=== PATIENT | female | born 1990 | race Caucasian/White ===

== ENCOUNTER 2017-05-18 11:22 | Emergency (ER) | payer OTHER ==
[2017-05-18 11:27] VITALS: BMI 29.2
[2017-05-18] MEDS ORDERED: ONDANSETRON 4 MG/2 ML VIAL IVPUSH ONE (12:09)
--- NOTE | 2017-05-18 12:18 | PDOC ---
History of Present Illness - General History Source: Patient Exam Limitations: No Limitations - History of Present Illness Initial Comments: 05/18/17 12:16 27 y.o. 13 week F with no pmh presenting with abdominal pain, nausea, and vomiting x 3 days. Patient states she was sleeping when she began having abdominal pain. She states the pain is constant, 6/10, sharp, epigastric to suprapubic, and non radiating. Patient has never had this before. She still has her gallbladder and appendix. Patient endorses nausea, vomiting, diarrhea. Patient denies, fever, chills, dysuria, hematuria, back pain, vaginal bleeding, hx of stds. PSH: none Allergies: nkda Social hx: denies alcohol, drugs, smoking PCP: Dr. Leonor Duffy <Clifton Alvares - Last Filed: 05/18/17 15:08> <Daniel Ku - Last Filed: 05/18/17 15:54> - General Chief Complaint: Pain Stated Complaint: ABDOMINAL PAIN/13 WEEKS/nausea/vomiting Time Seen by Provider: 05/18/17 11:40 Past History - Past Medical History Other medical history: denies - Suicide/Smoking/Psychosocial Hx Smoking History: Never smoked Hx Alcohol Use: No Drug/Substance Use Hx: No Substance Use Type: None <Clifton Alvares - Last Filed: 05/18/17 15:08> <Daniel Ku - Last Filed: 05/18/17 15:54> - Past Medical History Allergies/Adverse Reactions: Allergies Allergy/AdvReac Type Severity Reaction Status Date / Time No Known Allergies Allergy Verified 05/18/17 11:27 Home Medications: Ambulatory Orders Ondansetron [Zofran Odt -] 4 mg SL BID PRN #8 tab.rapdis 05/18/17 Vit/Iron Fumarate/FA [ Tablet] 1 each PO DAILY 05/18/17 Review of Systems - Review of Systems Comments:: 05/18/17 12:26 GENERAL/CONSTITUTIONAL: No fever or chills. No weakness. HEAD, EYES, EARS, NOSE AND THROAT: No change in vision. No ear pain or discharge. No sore throat. CARDIOVASCULAR: No chest pain or shortness of breath RESPIRATORY: No cough, wheezing, or hemoptysis. GASTROINTESTINAL: + nausea, +vomiting, +diarrhea, +abdominal pain (epigastric to suprapubic) GENITOURINARY: No dysuria, frequency, or change in urination. MUSCULOSKELETAL: No joint or muscle swelling or pain. No neck or back pain. SKIN: No rash NEUROLOGIC: No headache, vertigo, loss of consciousness, or change in strength/ sensation. ENDOCRINE: No increased thirst. No abnormal weight change HEMATOLOGIC/LYMPHATIC: No anemia, easy bleeding, or history of blood clots. ALLERGIC/IMMUNOLOGIC: No hives or skin allergy. <Clifton Alvares - Last Filed: 05/18/17 15:08> *Physical Exam - Vital Signs Last Vital Signs Temp Pulse Resp BP Pulse Ox 98.3 F 83 18 133/70 98 05/18/17 11:25 05/18/17 11:25 05/18/17 11:25 05/18/17 11:25 05/18/17 11:25 - Physical Exam Comments: 05/18/17 12:27 GENERAL: Awake, alert, and fully oriented, in no acute distress HEAD: No signs of trauma, normocephalic, atraumatic EYES: PERRLA, EOMI, sclera anicteric, conjunctiva clear ENT: Auricles normal inspection, hearing grossly normal, nares patent, oropharynx clear without exudates. Moist mucosa NECK: Normal ROM, supple, no lymphadenopathy, JVD, or masses LUNGS: No distress, speaks full sentences, clear to auscultation bilaterally HEART: Regular rate and rhythm, normal S1 and S2, no murmurs, rubs or gallops, peripheral pulses normal and equal bilaterally. ABDOMEN: Soft, +Tenderness to palpation to epigastric and suprapubic regions, normoactive bowel sounds. No guarding, no rebound. No masses, No CVA tenderness. Negative perez's sign, Negative mcburney's point tenderness EXTREMITIES: Normal inspection, Normal range of motion, no edema. No clubbing or cyanosis. NEUROLOGICAL: Cranial nerves II through XII grossly intact. Normal speech, normal gait, no focal sensorimotor deficits SKIN: Warm, Dry, normal turgor, no rashes or lesions noted. <Clifton Alvares - Last Filed: 05/18/17 15:08> - Vital Signs Last Vital Signs Temp Pulse Resp BP Pulse Ox 98.7 F 81 17 109/67 96 05/18/17 15:06 05/18/17 15:06 05/18/17 15:06 05/18/17 15:06 05/18/17 15:06 <Daniel Ku - Last Filed: 05/18/17 15:54> ED Treatment Course - LABORATORY CBC & Chemistry Diagram: 05/18/17 12:38 05/18/17 12:38 <Clifton Alvares - Last Filed: 05/18/17 15:08> - LABORATORY CBC & Chemistry Diagram: 05/18/17 12:38 05/18/17 12:38 - ADDITIONAL ORDERS Additional order review: Laboratory Results 05/18/17 05/18/17 05/18/17 12:43 12:38 12:38 Sodium 135 L Potassium 3.6 Chloride 102 Carbon Dioxide 26 Anion Gap 7 L BUN 5 L Creatinine 0.5 L Creat Clearance w eGFR > 60 Random Glucose 88 Calcium 8.8 Total Bilirubin 0.4 AST 25 ALT 31 Alkaline Phosphatase 66 Total Protein 7.8 Albumin 3.8 Lipase 93 Beta HCG, Quant 31171.4 Urine Color [place] Urine Appearance Cloudy Urine pH 6.0 Ur Specific [place] 1.020 Urine Protein Negative Urine Glucose (UA) Negative Urine Ketones Trace H Urine Blood Negative Urine Nitrite Negative Urine Bilirubin Negative Urine Urobilinogen Negative 05/18/17 12:38 RBC 4.43 MCV 88.6 MCHC 34.0 RDW 13.6 MPV 8.1 Neutrophils % 82.1 Lymphocytes % 11.6 Monocytes % 5.4 Eosinophils % 0.6 Basophils % 0.3 - Medications Given in the ED: ED Medications Discontinued Medications Generic Name Dose Route Start Last Admin Trade Name Jesse PRN Reason Stop Dose Admin Acetaminophen 650 mg 05/18/17 12:24 05/18/17 12:50 Tylenol - PO 05/18/17 12:25 650 mg ONCE ONE Administration Ondansetron HCl 4 mg 05/18/17 12:09 05/18/17 12:50 Zofran Injection IVPUSH 05/18/17 12:10 4 mg ONCE ONE Administration <Daniel Ku - Last Filed: 05/18/17 15:54> Medical Decision Making - Medical Decision Making 05/18/17 12:29 27 y.o. 13 week F with no pmh presenting with abdominal pain, nausea, and vomiting x 3 days. DDx: Cholecystitis, Appendicits, UTI, Pancreatitis Plan: CBC, CMP, Lipase, Abdominal U/s, Zofran, Pain control, Beta HCG, UA, Urine culture 05/18/17 13:41 CBC, CMP, Lipase, UA unremarkable 05/18/17 13:47 Beta HCG- 18922 05/18/17 15:08 Abdominal and Obstetric U/s unremarkable. Patient to be discharged home with close f/u with Dr. Duffy <Clifton Alvares - Last Filed: 05/18/17 15:08> *DC/Admit/Observation/Transfer <Clifton Alvares - Last Filed: 05/18/17 15:08> - Discharge Dispostion Admit: No - Attestations Physician Attestion: 05/18/17 15:54 I, Dr. Daniel Ku MD, attest that this document has been prepared under my direction and personally reviewed by me in its entirety. I further attest, that it accurately reflects all work, treatment, procedures and medical decision -making performed by me. <Daniel Ku - Last Filed: 05/18/17 15:54> Diagnosis at time of Disposition: Abdominal pain - Discharge Dispostion Disposition: HOME Condition at time of disposition: Stable - Prescriptions Prescriptions: Ondansetron [Zofran Odt -] 4 mg SL BID PRN #8 tab.rapdis PRN Reason: Nausea - Patient Instructions Printed Discharge Instructions: DI for Viral Gastroenteritis -- Adult Additional Instructions: Follow up with Dr. Brown next 05/24/17 as scheduled. Follow up with your primary doctor within 3-4 days. Drink plenty of fluids. You may take tylenol as needed for pain, and zofran as needed for nausea. Return to the emergency department if you have any new, concerning, or worsening symptoms. Print Language: VIET[place]ESE
[2017-05-18] MEDS ORDERED: ACETAMINOPHEN 325 MG TABLET (FP) PO ONE (12:24)
--- NOTE | 2017-05-18 12:25 | PDOC ---
Attending Attestation - Resident Resident Name: GiorgioLoul - ED Attending Attestation I have performed the following: I have examined & evaluated the patient, The case was reviewed & discussed with the resident, I agree w/resident's findings & plan, Exceptions are as noted - HPI HPI: 05/18/17 12:19 27yo F 13 weeks p/w abd pain x 3 days. Pain is epigastric and suprapubic, 6/10, non radiating a/w nausea and NBNB emesis. Also diarrhea since today, reports stool is black but patient reports her stool has been dark since she started iron supplements. No dysuria or frequency. Denies vaginal bleeding or discharge. Denies fevers, chills, headache, weakness, numbness, CP or SOB. - Physicial Exam PE: 05/18/17 12:25 GENERAL: Awake, alert, and fully oriented, in no acute distress HEAD: No signs of trauma EYES: PERRLA, EOMI, sclera anicteric, conjunctiva clear ENT: Auricles normal inspection, hearing grossly normal, nares patent, oropharynx clear without exudates. Moist mucosa NECK: Normal ROM, supple, no lymphadenopathy, JVD, or masses LUNGS: Breath sounds equal, clear to auscultation bilaterally. No wheezes, and no crackles HEART: Regular rate and rhythm, normal S1 and S2, no murmurs, rubs or gallops ABDOMEN: Soft, ttp in epigastric and suprapubic area, normoactive bowel sounds. No guarding, no rebound. No masses, pt declines rectal exam. LEAD JAVA SOFTWARE ENGINEER: os closed, no bleeding or discharge, no midline or adnexal ttp EXTREMITIES: Normal range of motion, no edema. No clubbing or cyanosis. No cords, erythema, or tenderness NEUROLOGICAL: Normal speech, cranial nerves intact, negative pronator drift, 5/ 5 strength in all 4 extremities, normal sensation to light touch in all 4 extremities, normal cerebellar exam, normal gait, normal reflexes and tone SKIN: Warm, Dry, normal turgor, no rashes or lesions noted. - Medical Decision Making 05/18/17 12:26 27yo F 13 weeks p/w 3 days of epigastric and suprapubic abd pain a /w nausea and diarrhea. Exam with ttp to suprapubic area and epgastric area. No CVAT. Differential is wide and includes UTI vs gastritis vs spont vs pancreatitis -labs -UA -US -tylenol/zofran -reassess 05/18/17 15:10 Pt reports abdominal pain and nausea have completely resolved. Pt tolerating PO. Labs, UA, and US unremarkable. Likely gastroenteritis. Using an conference interpreter (phone, Sheri) I discussed the physical exam findings, ancillary test results and final diagnoses with the patient. I answered all of the patient's questions. The patient was satisfied with the care received and felt comfortable with the discharge plan and treatment plan. The patient has follow up with her OB Dr. Sailaja Brown next . The patient will call her primary care physician within 24 hours to arrange follow-up and will return to the Emergency Department with any new, persistent or worsening symptoms.
[2017-05-18] MEDS ORDERED: ACETAMINOPHEN 325 MG TABLET (FP) ONE (12:40)
[2017-05-18] MEDS ORDERED: ONDANSETRON 4 MG/2 ML VIAL ONE (12:41)
[2017-05-18 12:44] LABS: BASOPHIL 0.3 % (0-2.0); EOSINOPHIL 0.6 % (0-4.5); MCH 30.1 pg (25.7-33.7); MEAN CELL VOLUME 88.6 fl (80-96); MEAN PLT VOLUME 8.1 fl (7.5-11.1); NEUTROPHILS 82.1 % (42.8-82.8); PLATELET COUNT 251 K/MM3 (134-434); RDW 13.6 % (11.6-15.6); WHITE BLOOD COUNT 8.7 K/mm3 (4.0-10.0)
[2017-05-18 13:00] LABS: URINE APPEARANCE CLOUDY; URINE BILIRUBIN NEGATIVE (NEGATIVE); URINE BLOOD NEGATIVE (NEGATIVE); URINE COLOR AMBER; URINE GLUCOSE (UA) NEGATIVE (NEGATIVE); URINE KETONE TRACE (NEGATIVE); URINE LEUK ESTERASE NEGATIVE (NEGATIVE); URINE NITRITE NEGATIVE (NEGATIVE); URINE PROTEIN NEGATIVE (NEGATIVE); URINE UROBILINOGEN NEGATIVE mg/dL (0.2-1.0)
[2017-05-18 13:24] LABS: ALBUMIN 3.8 g/dl (3.4-5.0); ALK PHOS 66 U/L (45-117); ANION GAP 7 (8-16); BILIRUBIN,TOTAL 0.4 mg/dL (0.2-1.0); CALCIUM 8.8 mg/dL (8.5-10.1); CO2 26 mmol/L (21-32); CREATININE 0.5 mg/dL (0.55-1.02); GLUCOSE,RANDOM 88 mg/dL (74-106); SGOT/AST 25 U/L (15-37); SGPT/ALT 31 U/L (12-78); TOT PROT 7.8 g/dl (6.4-8.2)
[2017-05-18 15:07] VITALS: BP 109/67; PULSE 81; TEMP 98.7
== END 2017-05-18 15:54 | disposition home or self-care (01) ==
LOC: JER 11:22
PROC: 3E033GC Introduction of Other Therapeutic Substance into Peripheral Vein, Percutaneous Approach (ICD-10-PCS; principal; 2017-05-18)
DX: O26.891 Other specified pregnancy related conditions, first trimester (principal); O98.511 Other viral diseases complicating pregnancy, first trimester; A08.4 Viral intestinal infection, unspecified; Z3A.13 13 weeks gestation of pregnancy
CPT/HCPCS: 36415; 76700-TC; 76801-TC; 80053; 81003; 83690; 84702; 85025; 87086; 96374; 99283-25

== ENCOUNTER 2017-11-27 05:00 | Inpatient (IN) | payer OTHER ==
[~2017-11-27 05:00] MED LIST: LACTATED RINGERS SOLUTION 1,000 ML IV SCH
[2017-11-27] MEDS ORDERED: AMPICILLIN - 2 GM in SODIUM CHLORIDE 100 ML IVPB ONE (06:00)
[2017-11-27 06:27] LABS: BASO % 0.4 % (0-2.0); EOS % 0.9 % (0-4.5); HEMATOCRIT 38.9 % (32.4-45.2); HEMOGLOBIN 13.3 GM/dL (10.7-15.3); MCH 30.6 pg (25.7-33.7); MCHC 34.1 g/dl (32.0-36.0); MEAN CELL VOLUME 89.6 fl (80-96); MEAN PLT VOLUME 9.4 fl (7.5-11.1); MONO % 6.7 % (3.8-10.2); PLATELET COUNT 215 K/MM3 (134-434); RBC 4.34 M/mm3 (3.60-5.2); RDW 14.5 % (11.6-15.6); WHITE BLOOD COUNT 8.3 K/mm3 (4.0-10.0)
[2017-11-27 06:48] LABS: INR 0.89 (0.82-1.09); PROTHROMBIN TIME (PATIENT) 10.1 SEC (9.98-11.88)
[2017-11-27 07:03] LABS: ANION GAP 9 (8-16); BLOOD UREA NITROGEN 7 mg/dL (7-18); CALCIUM 8.8 mg/dL (8.5-10.1); CHLORIDE 108 mmol/L (98-107); CO2 22 mmol/L (21-32); CREATININE 0.5 mg/dL (0.55-1.02); GLUCOSE,RANDOM 80 mg/dL (74-106); POTASSIUM 3.9 mmol/L (3.5-5.1); SODIUM 139 mmol/L (136-145)
[2017-11-27] MEDS ORDERED: AMPICILLIN SODIUM 1 GM VIAL ONE (10:07)
[2017-11-27] MEDS: AMPICILLIN - 1 GM in SODIUM CHLORIDE 100 ML IVPB SCH ×3 (10:11→18:12)
[2017-11-27] MEDS ORDERED: ELECTROLYTE-148 SOLN 1,000 ML IV SCH ×2 (10:30→11:30)
[2017-11-27] MEDS ORDERED: CITRIC ACID/SODIUM CITRATE 30 ML UNIT-DOSE CUP PO ONE ×2 (10:30→10:36)
--- NOTE | 2017-11-27 10:42 | HP ---
Past Medical History - Primary Care Physician PCP:: Gaston Avila - Admission Chief Complaint: 41 weeks, oblique lie. labor History of Present Illness: 27 yo f , 41.1 weeks, c/o contraction and vaginal spotting, no rom, cx clp , presenting part not felt , bed side sono confirmed oblique lie , fhr cat 1 contraction q 3 min History Source: Patient Limitations to Obtaining History: Language Barrier - Past Medical History ...: 1 ...Para: 0 ...Term: 0 ...: 0 ...Spon : 0 ...Induced : 0 ...Multiple Gestation: 0 ...LMP: 02/12/17 ... Weeks Gestation by Dates: 41.1 ...EDC by Dates: 11/19/17 - Past Surgical History Hx Myomectomy: No Hx Transabdominal Cerclage: No - Smoking History Smoking history: Never smoked Have you smoked in the past 12 months: No - Alcohol/Substance Use Hx Alcohol Use: No - Social History Usual Living Arrangement: Yes: With Spouse History of Recent Travel: No Home Medications - Allergies Allergies/Adverse Reactions: Allergies Allergy/AdvReac Type Severity Reaction Status Date / Time No Known Allergies Allergy Verified 11/22/17 17:42 - Home Medications Home Medications: Ambulatory Orders Vit/Iron Fum/Folic AC [ Tablet] 1 each PO DAILY 05/18/17 Ferrous Sulfate [Feosol] 325 mg PO DAILY 11/19/17 Review of Systems - Review of Systems Constitutional: reports: No Symptoms Eyes: reports: No Symptoms HENT: reports: No Symptoms Neck: reports: No Symptoms Cardiovascular: reports: No Symptoms Respiratory: reports: No Symptoms Gastrointestinal: reports: No Symptoms Genitourinary: reports: No Symptoms, Vaginal Bleeding Breasts: reports: No Symptoms Reported Musculoskeletal: reports: No Symptoms Integumentary: reports: No Symptoms Neurological: reports: No Symptoms Endocrine: reports: No Symptoms Hematology/Lymphatic: reports: No Symptoms Psychiatric: reports: No Symptoms Physical Exam - Maternity Vital Signs: Vital Signs Temperature 98.8 F 11/27/17 10:00 Pulse Rate 78 11/27/17 10:00 Respiratory Rate 18 11/27/17 10:00 Blood Pressure 128/76 11/27/17 10:00 O2 Sat by Pulse Oximetry (%) Constitutional: Yes: Well Nourished, No Distress, Calm Eyes: Yes: WNL, Conjunctiva Clear, EOM Intact HENT: Yes: WNL, Atraumatic, Normocephalic Neck: Yes: WNL, Supple, Trachea Midline Cardiovascular: Yes: WNL, Regular Rate and Rhythm Breast(s): Yes: WNL - Abdominal Exam/OB Fundal Height: 40 Number of Fetuses: Single Presentation: Vertex Contractions: Yes Regularity: Regular Intensity: Moderate Monitor Mode: External Heart Rate Location: [facility] Category: I Accelerations: Uniform - Vaginal Exam/OB Vaginal Bleediing: No Speculum Exam: No Dilatation (cm): closed Effacement (%): 0 Amniotic Membrane Status: Intact Presentation: Transverse/Shoulder Station: -4 - Physical Exam Edema: LLE: 1+, RLE: 1+ - Labs Lab Results: CBC, BMP 11/27/17 06:00 11/27/17 06:00 Hemorrhage Risk Assessment - Risk Factors Medium Risk Factors: Yes: Prior , uterine surgery,or multiple laparotomies, None High Risk Factors: Yes: None Risk Score: 2 Risk Level: High Risk Problem List - Problems (1) with 41 completed weeks gestation Code(s): Z3A.41 - 41 WEEKS GESTATION OF (2) Oblique lie Code(s): O32.2XX0 - MATERNAL CARE FOR TRANSVERSE AND OBLIQUE LIE, UNSP Qualifiers: Fetus number: single or unspecified fetus Qualified Code(s): O32.2XX0 - Maternal care for transverse and oblique lie, not applicable or unspecified (3) Labor established Code(s): WGQ4688 - Assessment/Plan plan c/s rba discussed
[2017-11-27] MEDS ORDERED: morphine SULFATE/Preservative Free 0.5 MG/ML (1cc Syringe) ONE (11:38)
[2017-11-27] MEDS ORDERED: ePHEDrine SULFATE 50 MG/1 ML AMPULE ONE (11:38)
[2017-11-27] MEDS ORDERED: ceFAZolin SODIUM 1 GM VIAL ONE (11:57)
[2017-11-27] MEDS ORDERED: OXYTOCIN 10 UNITS/ML VIAL ONE (12:02)
[2017-11-27] MEDS ORDERED: BENZOCAINE 28 GM HEMORRHOIDAL OINTMENT PR PRN (12:34)
[2017-11-27] MEDS ORDERED: diphenhydrAMINE HCL 25 MG CAPSULE (FP) PO PRN (12:34)
[2017-11-27] MEDS ORDERED: IBUPROFEN 800 MG/8 ML IJ IVPB PRN (12:34)
[2017-11-27] MEDS ORDERED: BENZOCAINE 20% 57 GM BOTTLE TP PRN (12:34)
[2017-11-27] MEDS ORDERED: DEXTROSE 5%-LACTATED RINGERS 1,000 ML IV SCH (12:45)
[2017-11-27] MEDS ORDERED: OXYTOCIN 20 UNITS in 0.9% NS 20 UNIT/1,000 ML INFUS.BAG IV SCH (12:45)
--- NOTE | 2017-11-27 14:15 | OP ---
DATE OF OPERATION: 11/27/2017 PREOPERATIVE DIAGNOSES: , 41 weeks, labor, oblique lie. POSTOPERATIVE DIAGNOSES: , 41 weeks, labor, oblique lie. PROCEDURE: Primary low segment transverse section. SURGEON: Gaston Avila MD BRIDGE ENGINEER: Jayce Arevalo MD ANESTHESIA: Spinal. ANESTHESIOLOGIST: ESTIMATED BLOOD LOSS: 500 mL. FINDINGS: A live baby girl, 8 and 9, in oblique position which was delivered by a vertex. OPERATION: Patient was taken to the operating room, and under adequate spinal anesthesia, abdomen and perineum was prepped and draped. Pfannenstiel abdominal skin incision was made. Abdominal wall was cut layer by layer until peritoneum was exposed and incised. Upon entering the abdominal cavity, lower uterine segment was identified, and uterovesical fold of peritoneum established, and bladder was pushed down. Then, with the lower blade of the [place] retractor in the pelvis, a low transverse uterine incision was made. Incision extended laterally with bandage scissors. Amniotic sac was entered. Light meconium amniotic fluid noticed. Then, baby was in oblique lie, the head to the right of the pelvis, which was delivered via vertex without any difficulty. Then, cord was clamped and cut, and live baby girl was delivered. Apgars 8 and 9. Placenta was delivered manually. Uterine cavity was cleaned of all the remaining tissue. Uterine incision was closed in 2 layers with first layer with 0 Biosyn continuous suture. The second layer with 0 Biosyn imbricating the first layer. Bladder flap was closed with 0 Biosyn continuously. Both tubes and ovaries were checked and normal. No active bleeding was seen. All the laparotomy pads, sponge, and instrument counts were correct. The peritoneum was closed with 0 Biosyn continuous suture. Muscles were brought together with interrupted suture of 0 Biosyn. Fascia was closed with 0 Biosyn continuous suture, subcutaneous fat with interrupted suture of 0 Biosyn, and the skin was closed with 3-0 Vicryl subcuticular continuous suture. The patient tolerated the procedure well, left the OR in good condition. [place] [id number]
[2017-11-27] MEDS ORDERED: METHYLERGONOVINE MALEATE 0.2 MG/1 ML AMP IM PRN (14:32)
[2017-11-27] MEDS ORDERED: WITCH HAZEL 50% (TUCKS) 40 PAD/JAR PAD TP PRN (14:32)
[2017-11-27] MEDS ORDERED: ONDANSETRON 4 MG/2 ML VIAL IVPUSH PRN (14:33)
[2017-11-27] MEDS: CEFAZOLIN 1 GM/D5W 1 GM/50 ML BAG IVPB SCH (18:12)
[2017-11-28] MEDS: CEFAZOLIN 1 GM/D5W 1 GM/50 ML BAG IVPB SCH (02:00)
[2017-11-28] MEDS ORDERED: ACETAMINOPHEN 325 MG TABLET (FP) ONE (06:59)
[2017-11-28] MEDS: IBUPROFEN 600 MG TABLET (FP) PO PRN ×3 (07:00→17:21)
[2017-11-28] MEDS: SIMETHICONE 80 MG TAB.CHEW (FP) PO PRN ×4 (07:01→21:32)
--- NOTE | 2017-11-28 07:43 | PN ---
Post Progress Note - Subjective Subjective: c/o pain scale 8/10 unable to void after couch is taken out oob in chair Post Day: 1 Type of Delivery: Primary C/S Vital Signs: Vital Signs Temperature 98.4 F 11/28/17 06:00 Pulse Rate 95 H 11/28/17 06:00 Respiratory Rate 20 11/28/17 06:00 Blood Pressure 110/58 11/28/17 06:00 O2 Sat by Pulse Oximetry (%) 100 11/27/17 13:35 Breast Exam: Yes: Soft, Other (plans to Bf ). No: Engorged Uterus: Yes: Fundus Firm, Fundus below umbilicus Incision: Yes: Dressing dry and intact. No: Oozing Abdomen/GI: Yes: Abdomen soft (bs active ), Tender, Tolerating PO (fluids ). No : Abdominal Distention, Passing flatus Lochia: Yes: Rubra Lochia, amount: Moderate Extremities: Yes: Calves non-tender Perineum: Yes: Intact Activity: Other (oob in chair ) - Labs Labs: CBC WBC 8.3 K/mm3 (4.0-10.0) 11/27/17 06:00 RBC 4.34 M/mm3 (3.60-5.2) 11/27/17 06:00 Hgb 13.3 GM/dL (10.7-15.3) 11/27/17 06:00 Hct 38.9 % (32.4-45.2) 11/27/17 06:00 MCV 89.6 fl (80-96) 11/27/17 06:00 MCH 30.6 pg (25.7-33.7) 11/27/17 06:00 MCHC 34.1 g/dl (32.0-36.0) 11/27/17 06:00 RDW 14.5 % (11.6-15.6) 11/27/17 06:00 Plt Count 215 K/MM3 (134-434) 11/27/17 06:00 MPV 9.4 fl (7.5-11.1) D 11/27/17 06:00 Neutrophils % 72.0 % (42.8-82.8) 11/27/17 06:00 Lymphocytes % 20.0 % (8-40) D 11/27/17 06:00 Monocytes % 6.7 % (3.8-10.2) 11/27/17 06:00 Eosinophils % 0.9 % (0-4.5) 11/27/17 06:00 Basophils % 0.4 % (0-2.0) 11/27/17 06:00 Other Findings, Remarks: urine out put 800 ml RS cta Assessment/Plan stable s/o pc/section plan ct po care po cbc pending encourage po fluids, deep breathing , ambulation
[2017-11-28 08:58] LABS: BASO % 0.5 % (0-2.0); EOS % 0.4 % (0-4.5); HEMATOCRIT 29.1 % (32.4-45.2); LYMPH % 13.4 % (8-40); MCH 30.9 pg (25.7-33.7); MCHC 34.2 g/dl (32.0-36.0); MEAN CELL VOLUME 90.3 fl (80-96); MEAN PLT VOLUME 8.7 fl (7.5-11.1); MONO % 5.6 % (3.8-10.2); NEUT % 80.1 % (42.8-82.8); PLATELET COUNT 182 K/MM3 (134-434); RBC 3.22 M/mm3 (3.60-5.2); WHITE BLOOD COUNT 10.9 K/mm3 (4.0-10.0)
[2017-11-28] MEDS ORDERED: DIPHTH,PERTUSS(ACELL),TET 0.5 ML DISP.SYRIN IM ONE (10:00)
[2017-11-28] MEDS: ENOXAPARIN NA (PORCINE) 40 MG/0.4 ML DISP.SYRIN SQ SCH (10:23)
[2017-11-28] MEDS: ACETAMINOPHEN 325 MG TABLET (FP) PO PRN ×3 (11:39→21:32)
[2017-11-28] MEDS ORDERED: BISACODYL 10 MG SUPP.RECT RC PRN (12:34)
[2017-11-28] MEDS: oxyCODONE HCL 5 MG TABLET PO PRN (21:33)
[2017-11-29] MEDS: SIMETHICONE 80 MG TAB.CHEW (FP) PO PRN ×4 (05:24→23:14)
[2017-11-29] MEDS: ACETAMINOPHEN 325 MG TABLET (FP) PO PRN ×4 (05:24→19:28)
[2017-11-29] MEDS: oxyCODONE HCL 5 MG TABLET PO PRN ×2 (05:24→23:14)
[2017-11-29] MEDS: IBUPROFEN 600 MG TABLET (FP) PO PRN ×4 (08:49→23:14)
[2017-11-29] MEDS: ENOXAPARIN NA (PORCINE) 40 MG/0.4 ML DISP.SYRIN SQ SCH (09:41)
--- NOTE | 2017-11-29 10:23 | PN ---
Progress Note (short form) - Note Progress Note: Anesthesia postop note 27 y/o F s/p spinal anesthesia / duramorph for section. POD#2, vss, aaox3, pain well controlled, sensory motor intact distally No anesthesia complications.
--- NOTE | 2017-11-29 14:25 | PN ---
Post Progress Note - Subjective Subjective: 27 yo Para 1 status post primary , seen and evaluated. Doing well, no complaints. Post Day: 1 Type of Delivery: Primary C/S Vital Signs: Vital Signs Temperature 97.8 F 11/29/17 12:37 Pulse Rate 91 H 11/29/17 12:37 Respiratory Rate 18 11/29/17 12:37 Blood Pressure 100/54 11/29/17 12:37 O2 Sat by Pulse Oximetry (%) 100 11/27/17 13:35 Breast Exam: Yes: Soft Uterus: Yes: Fundus Firm Incision: Yes: Dressing dry and intact Abdomen/GI: Yes: Abdomen soft, Tolerating PO Lochia: Yes: Rubra Lochia, amount: Small Extremities: Yes: Calves non-tender Perineum: Yes: Intact Activity: Ambulating - Labs Labs: CBC WBC 10.9 K/mm3 (4.0-10.0) H D 11/28/17 08:00 RBC 3.22 M/mm3 (3.60-5.2) L D 11/28/17 08:00 Hgb 10.0 GM/dL (10.7-15.3) L D 11/28/17 08:00 Hct 29.1 % (32.4-45.2) L D 11/28/17 08:00 MCV 90.3 fl (80-96) 11/28/17 08:00 MCH 30.9 pg (25.7-33.7) 11/28/17 08:00 MCHC 34.2 g/dl (32.0-36.0) 11/28/17 08:00 RDW 15.0 % (11.6-15.6) 11/28/17 08:00 Plt Count 182 K/MM3 (134-434) 11/28/17 08:00 MPV 8.7 fl (7.5-11.1) 11/28/17 08:00 Neutrophils % 80.1 % (42.8-82.8) 11/28/17 08:00 Lymphocytes % 13.4 % (8-40) D 11/28/17 08:00 Monocytes % 5.6 % (3.8-10.2) 11/28/17 08:00 Eosinophils % 0.4 % (0-4.5) 11/28/17 08:00 Basophils % 0.5 % (0-2.0) 11/28/17 08:00 Problem List - Problems (1) Status post primary low transverse section Code(s): Z98.891 - HISTORY OF UTERINE SCAR FROM PREVIOUS SURGERY Assessment/Plan Status post primary Stable Analgesia as needed Continue routine post op care
[2017-11-29] MEDS ORDERED: SENNOSIDES/DOCUSATE COMBO (SENNA PLUS) TABLET (UD) PO PRN (22:00)
[2017-11-30] MEDS: ACETAMINOPHEN 325 MG TABLET (FP) PO PRN ×4 (04:13→23:15)
[2017-11-30] MEDS: IBUPROFEN 600 MG TABLET (FP) PO PRN ×4 (04:13→23:14)
--- NOTE | 2017-11-30 07:47 | PN ---
Progress Note (short form) - Note Progress Note: pod 3 doing well, no c/o , ambulating CBC, BMP 11/27/17 06:00 Last Vital Signs Temp Pulse Resp BP Pulse Ox 98.3 F 84 20 101/67 99 11/29/17 22:00 11/29/17 22:00 11/29/17 22:00 11/29/17 22:00 11/29/17 22:00 abdomen soft, no distension, no cva , incision dry, clean no calf tenderness plan ambulate, cbc Problem List - Problems (1) with 41 completed weeks gestation Code(s): Z3A.41 - 41 WEEKS GESTATION OF (2) Oblique lie Code(s): O32.2XX0 - MATERNAL CARE FOR TRANSVERSE AND OBLIQUE LIE, UNSP Qualifiers: Fetus number: single or unspecified fetus Qualified Code(s): O32.2XX0 - Maternal care for transverse and oblique lie, not applicable or unspecified (3) Labor established Code(s): [id number] -
[2017-11-30 07:48] LABS: BASO % 0.5 % (0-2.0); EOS % 2.3 % (0-4.5); HEMATOCRIT 27.8 % (32.4-45.2); HEMOGLOBIN 9.4 GM/dL (10.7-15.3); MCH 30.7 pg (25.7-33.7); MCHC 33.6 g/dl (32.0-36.0); MEAN CELL VOLUME 91.5 fl (80-96); MONO % 5.3 % (3.8-10.2); NEUT % 67.9 % (42.8-82.8); PLATELET COUNT 218 K/MM3 (134-434); RBC 3.04 M/mm3 (3.60-5.2); RDW 14.7 % (11.6-15.6)
[2017-11-30] MEDS: oxyCODONE HCL 5 MG TABLET PO PRN (09:22)
[2017-11-30] MEDS: ENOXAPARIN NA (PORCINE) 40 MG/0.4 ML DISP.SYRIN SQ SCH (09:22)
[2017-11-30] MEDS: SIMETHICONE 80 MG TAB.CHEW (FP) PO PRN ×4 (09:22→23:14)
[2017-11-30 23:25] VITALS: TEMP 98.3
[2017-12-01] MEDS: IBUPROFEN 600 MG TABLET (FP) PO PRN (07:53)
[2017-12-01] MEDS: SIMETHICONE 80 MG TAB.CHEW (FP) PO PRN (07:53)
[2017-12-01] MEDS: ACETAMINOPHEN 325 MG TABLET (FP) PO PRN (07:53)
--- NOTE | 2017-12-01 07:58 | DS ---
Physical Exam-GROUT WORKER Vital Signs: Vital Signs Temperature 98.3 F 11/30/17 22:00 Pulse Rate 86 11/30/17 22:00 Respiratory Rate 18 11/30/17 22:00 Blood Pressure 134/76 11/30/17 22:00 O2 Sat by Pulse Oximetry (%) 99 11/29/17 22:00 Constitutional: Yes: Well Nourished Eyes: Yes: Conjunctiva Clear HENT: Yes: Atraumatic Neck: Yes: Supple Cardiovascular: Yes: Regular Rate and Rhythm Respiratory: Yes: Regular, CTA Bilaterally Gastrointestinal: Yes: Normal Bowel Sounds External Genitalia: Yes: Normal Vaginal Exam: Yes: Normal Cervix: Yes: Normal Uterus: Yes: Firm Wound/Incision: Yes: Clean/Dry, Well Approximated Neurological: Yes: Alert, Oriented ...Motor Strength: WNL Psychiatric: Yes: Alert, Oriented Labs: CBC, BMP 11/30/17 06:58 11/27/17 06:00 Delivery - Delivery Section: Primary Type of Anesthesia: Spinal EBL (cc): 500 Delivery, Single - Stages of Labor Date of Delivery: 11/27/17 Time of Delivery: 12:08 Time Placenta Delivered: 12:09 - Condition of Drama Teacher/Hair Cutter Present: Yes Name: Dario Cortez Infant Gender: Female Weight: 8 lb 4 oz Position: OP Total Hours ROM (Hrs/Mins): 2 minutes - 1 Minute Total Score: 8 5 Minutes Total Score: 9 - Feeding Plan Initial Plan: Elected not to breastfeed exclusively throughout hospitalization Discharge Summary Reason For Visit: ADMIT Current Active Problems Labor established (Acute) Oblique lie (Acute) with 41 completed weeks gestation (Acute) Status post primary low transverse section (Acute) Procedures: Principal: Primary Low Transverse Hospital Course: Routine post op care Condition: Good - Instructions Diet, Activity, Other Instructions: Regular diet No driving no lifting x 4 weeks F/U in clinic in 2 weeks Disposition: HOME - Home Medications Comprehensive Discharge Medication List: Ambulatory Orders Vit/Iron Fum/Folic AC [ Tablet] 1 each PO DAILY 05/18/17 Ferrous Sulfate [Feosol] 325 mg PO DAILY 11/19/17
[2017-12-01 08:41] VITALS: PULSE 80
[2017-12-01] MEDS: ENOXAPARIN NA (PORCINE) 40 MG/0.4 ML DISP.SYRIN SQ SCH (09:02)
[2017-12-01 10:05] VITALS: BP 131/77
--- NOTE | 2017-12-04 15:35 | PATH ---
Surgical Pathology Report Patient Name: LALI KAT Med. Rec. #: [id number] /Age/Gender: 1990 (Age: 27) / F Account: [id number] Location: [facility] OBS/DISTANCE EDUCATION TEACHER Taken: 11/27/2017 Received: 11/28/2017 Reported: 12/04/2017 Physicians: Gaston Avila M.D. Specimen(s) Received PLACENTA Clinical History 41.1 weeks Primary section Final Diagnosis PLACENTA, DELIVERY: FOCALLY DISRUPTED THIRD TRIMESTER PLACENTA WITH THREE VESSEL UMBILICAL CORD AND UNREMARKABLE PLACENTAL MEMBRANES. Electronically Signed Maxime Jones M.D. Gross Description The specimen is received fresh labeled placenta and is a 507 gram, 21 x 15 x 3 cm. placenta with attached membranes and umbilical cord. The attached membranes are mucoid and insert marginally. The umbilical cord measures 53 cm. in length and averages 1.3 cm. in diameter. The cord inserts eccentrically, 3 cm. to the nearest margin. No true knots or strictures are identified. Cut surface of the umbilical cord reveals 3 vessels. The surface is tena-blue with minimal fibrin deposition and appropriate caliber vessels. The maternal surface is red-brown with focal defects. Sectioning reveals red-brown, spongy parenchyma. No lesions are identified. Trade Marker sections are submitted in three cassettes as follows: 1- membrane rolls and umbilical cord; 2-3- full thickness sections of placenta. [facility]/11/30/2017 the medical center/11/30/2017
== END 2017-12-01 12:46 | disposition home or self-care (01) | DRG 540 ==
LOC: JLDR 05:00 → J3W 14:50
PROVIDERS: ADMIT Obstetrics & Gynecology; ATTEND Obstetrics & Gynecology
PROC: 10D00Z1 Extraction of Products of Conception, Low, Open Approach (ICD-10-PCS; principal; 2017-11-27)
DX: O32.2XX0 Maternal care for transverse and oblique lie, not applicable or unspecified (principal); Z3A.41 41 weeks gestation of pregnancy; Z37.0 Single live birth
CPT/HCPCS: 36415; 80048; 85025; 85610; 85730; 86593; 86850; 86900; 86901; 88307-TC; 90715

== ENCOUNTER 2017-12-08 22:45 | Emergency (ER) | payer OTHER ==
[2017-12-08 22:51] VITALS: BP 147/89; PULSE 86; TEMP 98.2; BMI 33.0
--- NOTE | 2017-12-08 23:56 | PDOC ---
History of Present Illness - General Chief Complaint: Pain, Acute Stated Complaint: BACK PAIN Time Seen by Provider: 12/08/17 23:12 History Source: Patient, Spouse - History of Present Illness Initial Comments: 12/08/17 23:56 27 year old female 11 days post- presents to our ED this evening c/o vaginal bleeding. Patient states she has been spotting since her 11/27/17 C/S however today she started bleeding more heavily (10 pads used today) and experienced sharp pain from her back to her abdomen prompting her visit to the ED. Pain is constant, 10/10, sharp, with no identifiable triggering/relieving factors. Patient denies any fevers/chills, chest pain, shortness of breath, nausea/ vomiting, diarrhea/constipation. NKDA Surgical: C/S Social: denies nicotine, denies alcohol, denies recreational drugs OB-[employer] Cutter: Dr. Orlando Past History - Past Medical History Allergies/Adverse Reactions: Allergies Allergy/AdvReac Type Severity Reaction Status Date / Time No Known Allergies Allergy Verified 12/08/17 22:51 Home Medications: Ambulatory Orders Vit/Iron Fum/Folic AC [ Tablet] 1 each PO DAILY 05/18/17 Ferrous Sulfate [Feosol] 325 mg PO DAILY 11/19/17 Ibuprofen [Motrin -] 600 mg PO Q4H PRN 14 Days #60 tablet 12/01/17 Asthma: No Cancer: No Cardiac Disorders: No COPD: No Diabetes: No HTN: No Seizures: No Thyroid Disease: No - Suicide/Smoking/Psychosocial Hx Smoking History: Never smoked Have you smoked in the past 12 months: No Hx Alcohol Use: No Drug/Substance Use Hx: No Substance Use Type: None Hx Substance Use Treatment: No Review of Systems - Review of Systems Constitutional: No: Chills, Fever HEENTM: No: Recent change in vision Respiratory: No: Cough, Shortness of Breath Cardiac (ROS): No: Chest Pain, Lightheadedness, Palpitations, Syncope ABD/GI: No: See HPI, Diarrhea, Nausea, Vomiting : Yes: Other (vaginal bleeding). No: Burning, Dysuria *Physical Exam - Vital Signs Last Vital Signs Temp Pulse Resp BP Pulse Ox 98.2 F 86 18 147/89 100 12/08/17 22:46 12/08/17 22:46 12/08/17 22:46 12/08/17 22:46 12/08/17 22:46 - Physical Exam General Appearance: Yes: Nourished, Appropriately Dressed Neck: positive: Trachea midline, Supple Respiratory/Chest: positive: Lungs Clear, Normal Breath Sounds Cardiovascular: positive: S1, S2. negative: Edema, JVD Female Pelvic Exam: positive: vaginal bleeding, other (dark red blood from vaginal vault). negative: adnexal tenderness Musculoskeletal: negative: CVA Tenderness (R), CVA Tenderness (L) Extremity: positive: Normal Capillary Refill, Normal Inspection Integumentary: positive: Normal Color, Dry, Warm Neurologic: positive: Fully Oriented, Alert ED Treatment Course - LABORATORY CBC & Chemistry Diagram: 12/09/17 00:12 Medical Decision Making - Medical Decision Making 12/09/17 00:16 27 year old female presents with vaginal bleeding. BP 147/82 Frontal diagnosis : hemmorhage, retained POC, endometritis. Will obtain basic labs, B- HCG and Spinal XR. 12/09/17 00:42 Pelvic exam shows closed cervical os with active vaginal bleed. 12/09/17 01:06 CBC shows Hb 11.6 (9.4 immediately post ); no leukocytosis. XR pending. 12/09/17 03:16 X-ray shows mild lordosis, no acute fracture. 12/09/17 04:01 TVUS shows hypervascular vs. endometritis. Patient remains afebrile and no leukocytosis however RF of recent C/S. Patient to be discharged home with strong return counseling if patient should develop fever and/or discharge. OB- [employer] Cutter follow-up within 48 hours. *DC/Admit/Observation/Transfer Diagnosis at time of Disposition: Vaginal bleeding - Discharge Dispostion Disposition: HOME Condition at time of disposition: Good Admit: No - Referrals Referrals: Gaston Avila MD [Staff Physician] - - Patient Instructions Printed Discharge Instructions: DI for Vaginal Bleeding Additional Instructions: Follow-up with your SALES REP in the next 24-48 hours. Continue to use Tylenol for pain control. Return to the Emergency Department should you develop any fevers, vaginal discharge or any new/worsening/concerning symptoms. - Post Discharge Activity
[2017-12-09 00:33] LABS: BASO % 0.4 % (0-2.0); EOS % 0.7 % (0-4.5); HEMATOCRIT 34.6 % (32.4-45.2); HEMOGLOBIN 11.6 GM/dL (10.7-15.3); MCH 30.2 pg (25.7-33.7); MCHC 33.6 g/dl (32.0-36.0); MEAN CELL VOLUME 89.9 fl (80-96); MEAN PLT VOLUME 7.2 fl (7.5-11.1); MONO % 4.3 % (3.8-10.2); NEUT % 80.6 % (42.8-82.8); PLATELET COUNT 408 K/MM3 (134-434); RBC 3.85 M/mm3 (3.60-5.2); RDW 14.5 % (11.6-15.6); WHITE BLOOD COUNT 11.7 K/mm3 (4.0-10.0)
[2017-12-09 00:34] LABS: URINE APPEARANCE CLEAR; URINE BILIRUBIN NEGATIVE (<2.0 mg/dL); URINE COLOR AMBER; URINE GLUCOSE (UA) NEGATIVE (NEGATIVE); URINE KETONE NEGATIVE (NEGATIVE); URINE LEUK ESTERASE NEGATIVE (NEGATIVE); URINE NITRITE NEGATIVE (NEGATIVE); URINE UROBILINOGEN NEGATIVE mg/dL (0.2-1.0)
[2017-12-09 00:37] LABS: URINE PROTEIN 1+ (NEGATIVE)
[2017-12-09 00:38] LABS: EPI CELLS RARE /HPF (FEW); URINE BACTERIA RARE /hpf (NONE SEEN); URINE MUCUS RARE
[2017-12-09] MEDS ORDERED: ACETAMINOPHEN 1000 MG/100 ML VIAL (NON FORMULARY) IVPB ONE (00:42)
[2017-12-09] MEDS ORDERED: ACETAMINOPHEN 325 MG TABLET (FP) ONE (01:53)
--- NOTE | 2017-12-09 02:49 | PDOC ---
Attending Attestation - HPI HPI: The patient is a 27 year old female with a significant past medical history of recent who presents to the emergency department for evaluation of vaginal bleeding. The patient reports she has been spotting since her (11/27/17); however, she started bleeding heavily today (8 pads used) prompting her to visit the emergency department for further evaluation. The patient reports associated sharp abdominal pain in her abdomen.The patient reports intermittent episodes of lower back pain similar to pain from contractions. The patient reports taking tylenol and motrin to alleviate the pain. She reports and states her child is doing fine. Of note, the patient is 11 days post-. The patient denies chest pain, shortness of breath, fevers, chills, nausea, vomiting, diarrhea, and constipation. Allergies: NKA Past surgical history: . Social history: No reported cigarette, alcohol, or drug use. NURSING ADMIN: Dr. Avila <Mignon Bishop - Last Filed: 12/09/17 02:50> - Resident Resident Name: Miryam Hart - ED Attending Attestation I have performed the following: I have examined & evaluated the patient, The case was reviewed & discussed with the resident, I agree w/resident's findings & plan - HPI HPI: 12/09/17 02:46 Pt comes with vag bleeding since her . She used about 8 pads throughout today so she came in to get checked out. as she is having uterine contractions and lumbar pain. Pt has no fever and no chills. She has no dysuria and she is eating normally. She is and bottle feeding the baby and she states that the baby is fine. Pt had a c section and she has a normal scar that is healing well. NURSING ADMIN Dr. Avila saw delivered the patient and he will follow with the patient next week and states that she may be discharged so long as her Hb and HCT are stable. - Physicial Exam PE: 12/09/17 02:48 Agree with resident exam - Medical Decision Making 12/09/17 02:48 Pt's CBC is normal; UA has no UTI; Pt's beta HCG quant is 8.4, going to zero Pt will have a L-spine XR and her sono uterus is pending. Pt will be discharged home with tylenol. 12/09/17 03:58 Patient Name: ARNAUD NOLAN THIS IS A PRELIMINARY REPORT FROM [facility] DATE OF SERVICE: 2017-12-09 01:01:12 IMAGES: 46 EXAM: Transabdominal pelvic ultrasound and endovaginal pelvic ultrasound HISTORY: bleeding COMPARISON: None. FINDINGS: Transabdominal pelvic ultrasound:Uterus is anteverted and measures 18.1 x 7.5centimeters in length. Endovaginal pelvic ultrasound: The endometrium is thickened to 3.2 cm heterogeneous and contains echogenic foci, likely air, which may represent endometritis and/or hemorrhage. No foci of endometrial hypervascularity.. Ovaries not identified. There is no significant free fluid. IMPRESSION: Thickened heterogeneous endometrium with echogenic foci but no hypervascularity, suspected to represent endometritis and/or blood clot without definite findings for retained products of conception. THIS DOCUMENT HAS BEEN ELECTRONICALLY SIGNED 12/09/17 06:32 Pt has a thickened hypervascular uterus. Likely not endometritis, as pt has no fever or WBC count. Pt will follow with Dr. Avila as an outpatient. <Lorna Rcoha - Last Filed: 12/09/17 06:35> Attestations - Attestations Documentation prepared by Mignon Bishop, acting as medical laboratory manager for Lorna Rocha MD. <Mignon Bishop - Last Filed: 12/09/17 02:50>
== END 2017-12-09 04:19 | disposition home or self-care (01) ==
LOC: JER 22:45
DX: O72.2 Delayed and secondary postpartum hemorrhage (principal)
CPT/HCPCS: 36415; 72100-TC-FY; 76830-TC; 81003; 81015; 84702; 85025; 87086; 87186; 99282-25

== ENCOUNTER 2019-02-14 10:18 | Emergency (ER) | payer OTHER ==
[2019-02-14 10:27] VITALS: BP 114/72; PULSE 81; TEMP 98.2; BMI 28.1
[2019-02-14] MEDS ORDERED: ACETAMINOPHEN 500 MG TABLET (FP) PO ONE (11:02)
[2019-02-14 11:20] LABS: BASO % 0.8 % (0-2.0); EOS % 1.4 % (0-4.5); HEMATOCRIT 40.1 % (32.4-45.2); HEMOGLOBIN 13.5 GM/dL (10.7-15.3); LYMPH % 30.8 % (8-40); MCH 29.3 pg (25.7-33.7); MCHC 33.6 g/dl (32.0-36.0); MEAN PLT VOLUME 8.2 fl (7.5-11.1); MONO % 9.2 % (3.8-10.2); NEUT % 57.8 % (42.8-82.8); PLATELET COUNT 233 K/MM3 (134-434); RBC 4.61 M/mm3 (3.60-5.2); RDW 13.3 % (11.6-15.6); WHITE BLOOD COUNT 3.8 K/mm3 (4.0-10.0)
[2019-02-14] MEDS ORDERED: ACETAMINOPHEN 325 MG TABLET (FP) ONE (11:26)
--- NOTE | 2019-02-14 11:32 | PDOC ---
*Physical Exam - Vital Signs Last Vital Signs Temp Pulse Resp BP Pulse Ox 98.2 F 81 20 114/72 96 02/14/19 10:24 02/14/19 10:24 02/14/19 10:24 02/14/19 10:24 02/14/19 10:24 ED Treatment Course - LABORATORY CBC & Chemistry Diagram: 02/14/19 11:10 02/14/19 11:10 - ADDITIONAL ORDERS Additional order review: 02/14/19 11:10 RBC 4.61 MCV 87.0 MCHC 33.6 RDW 13.3 MPV 8.2 D Neutrophils % 57.8 D Lymphocytes % 30.8 D Monocytes % 9.2 D Eosinophils % 1.4 D Basophils % 0.8 Medical Decision Making - Medical Decision Making 02/14/19 11:31 Pt seen by Midlevel Provider under my direct supervision Ancillary studies reviewed EKG - Twelve-lead EKG was performed and reviewed by me. There is normal sinus rhythm with a normal rate. The axis is normal. The intervals are normal. There are no ST or T wave abnormalities. Impression: Normal twelve-lead EKG I agree with plan as outlined by Midlevel Provider *DC/Admit/Observation/Transfer Diagnosis at time of Disposition: Chest tightness - Discharge Dispostion Disposition: HOME Condition at time of disposition: Improved - Referrals Referrals: Marcos Anderson MD [Staff Physician] - - Patient Instructions Printed Discharge Instructions: DI for Atypical Chest Pain Additional Instructions: At this time your labs x-ray and EKG were normal. I do recommend following up with your doctor and/or armored cable machine operator if symptoms continue - Post Discharge Activity
--- NOTE | 2019-02-14 11:50 | PDOC ---
History of Present Illness - General Chief Complaint: Chest Pain Stated Complaint: ABD PAIN/LT FOOT PAIN Time Seen by Provider: 02/14/19 10:37 History Source: Patient Exam Limitations: No Limitations - History of Present Illness Initial Comments: 02/14/19 11:22 28-year-old female with no past medical history presents to ED with complaints of intermittent shortness of breath and chest tightness with exertion over the past month. Patient denies seeking medical care and denies any palpitations, dizziness, nausea excessive sweating, recent travel or recent illness. Timing/Duration: other (1 month) Severity: mild Associated Symptoms: reports: shortness of breath, other (chest tightness) Past History - Travel Traveled outside of the country in the last 30 days: No Close contact w/someone who was outside of country & ill: No - Past Medical History Allergies/Adverse Reactions: Allergies Allergy/AdvReac Type Severity Reaction Status Date / Time No Known Allergies Allergy Verified 02/14/19 10:32 Home Medications: Ambulatory Orders Vit/Iron Fum/Folic AC [ Tablet] 1 each PO DAILY 05/18/17 Ferrous Sulfate [Feosol] 325 mg PO DAILY 11/19/17 Ibuprofen [Motrin -] 600 mg PO Q4H PRN 14 Days #60 tablet 12/01/17 Asthma: No Cancer: No Cardiac Disorders: No COPD: No Diabetes: No HTN: No Seizures: No Thyroid Disease: No - Suicide/Smoking/Psychosocial Hx Smoking History: Never smoked Have you smoked in the past 12 months: No Information on smoking cessation initiated: No Hx Alcohol Use: No Drug/Substance Use Hx: No Substance Use Type: None Hx Substance Use Treatment: No Patient Lives Alone: No Lives with/in: spouse/SO Review of Systems - Review of Systems Able to Perform ROS?: Yes Constitutional: No: Symptoms Reported HEENTM: No: Symptoms Reported Respiratory: Yes: SOB with Exertion Cardiac (ROS): Yes: Chest Tightness : No: Symptoms Reported Musculoskeletal: No: Symptoms Reported Integumentary: No: Symptoms Reported Neurological: No: Symptoms reported Endocrine: No: Symptoms Reported Hematologic/Lymphatic: No: Symptoms Reported *Physical Exam - Vital Signs Last Vital Signs Temp Pulse Resp BP Pulse Ox 98.2 F 81 20 114/72 96 02/14/19 10:24 02/14/19 10:24 02/14/19 10:24 02/14/19 10:24 02/14/19 10:24 - Physical Exam General Appearance: Yes: Nourished, Appropriately Dressed. No: Apparent Distress HEENT: positive: EOMI. negative: Pale Conjunctivae Neck: positive: Supple Respiratory/Chest: positive: Chest Tender (left sternal border), Lungs Clear, Normal Breath Sounds. negative: Respiratory Distress, Accessory Muscle Use Cardiovascular: positive: Regular Rhythm, Regular Rate. negative: Murmur Gastrointestinal/Abdominal: positive: Soft. negative: Tenderness Integumentary: positive: Normal Color, Warm, Moist Neurologic: positive: Normal Mood/Affect, Motor Strength 5/5 (ambulatory) ED Treatment Course - LABORATORY CBC & Chemistry Diagram: 02/14/19 11:10 02/14/19 11:10 - ADDITIONAL ORDERS Additional order review: 02/14/19 11:10 RBC 4.61 MCV 87.0 MCHC 33.6 RDW 13.3 MPV 8.2 D Neutrophils % 57.8 D Lymphocytes % 30.8 D Monocytes % 9.2 D Eosinophils % 1.4 D Basophils % 0.8 - RADIOLOGY Radiology Studies Ordered: Category Date Time Status CHEST PA & LAT [RAD] Stat Radiology 02/14/19 10:44 Ordered Medical Decision Making - Medical Decision Making 02/14/19 11:02 CC: intermittent chest tightness with SOB x 1 month worse with exertion. No other complaints. PERC - Wxamm: reproducible left sided cp at sternal border, vss, ekg nsr at 72 Plan: labs, ekg, cxr and tylenol 02/14/19 12:23 Laboratory Tests 02/14/19 02/14/19 11:10 11:10 WBC 3.8 L Hgb 13.5 Hct 40.1 D Neutrophils % 57.8 D Sodium 140 Potassium 3.8 Chloride 107 Carbon Dioxide 27 Anion Gap 6 L BUN 7.7 Creatinine 0.6 Random Glucose 94 Creatine Kinase 85 Troponin I < 0.02 Albumin 3.9 X-ray negative for acute pathology. Patient states feeling better after receiving medication. Patient will be discharged home with recommendations to follow-up with her PCP and/or grain operator. *DC/Admit/Observation/Transfer Diagnosis at time of Disposition: Chest tightness - Discharge Dispostion Disposition: HOME Condition at time of disposition: Improved - Referrals Referrals: Marcos Anderson MD [Staff Physician] - - Patient Instructions Printed Discharge Instructions: DI for Atypical Chest Pain Additional Instructions: At this time your labs x-ray and EKG were normal. I do recommend following up with your doctor and/or grain operator if symptoms continue - Post Discharge Activity
[2019-02-14 11:58] LABS: ALBUMIN 3.9 g/dl (3.4-5.0); ALK PHOS 73 U/L (45-117); ANION GAP 6 MMOL/L (8-16); BILIRUBIN,TOTAL 0.5 mg/dL (0.2-1); BLOOD UREA NITROGEN 7.7 mg/dL (7-18); CALCIUM 8.7 mg/dL (8.5-10.1); CHLORIDE 107 mmol/L (98-107); CO2 27 mmol/L (21-32); CREATININE 0.6 mg/dL (0.55-1.3); GLUCOSE,RANDOM 94 mg/dL (74-106); POTASSIUM 3.8 mmol/L (3.5-5.1); SGOT/AST 24 U/L (15-37); SGPT/ALT 34 U/L (13-61); SODIUM 140 mmol/L (136-145); TOT PROT 7.4 g/dl (6.4-8.2)
--- NOTE | 2019-02-14 12:00 | EKG ---
Test Reason : Blood Pressure : / mmHG Vent. Rate : 074 BPM Atrial Rate : 074 BPM P-R Int : 136 ms QRS Dur : 074 ms QT Int : 382 ms P-R-T Axes : 039 049 029 degrees QTc Int : 424 ms NORMAL SINUS RHYTHM NORMAL ECG NO PREVIOUS ECGS AVAILABLE Confirmed by UYEN BEARD MD ([id number]) on 02/14/2019 12:00:14 PM Referred By: Confirmed By:UYEN BEARD MD
== END 2019-02-14 12:35 | disposition home or self-care (01) ==
LOC: JER 10:18
DX: R07.9 Chest pain, unspecified (principal)
CPT/HCPCS: 36415; 71046-TC-FY; 80053; 82550; 84484; 85025; 93005; 93010; 99282-25

== ENCOUNTER 2019-11-14 16:37 | Emergency (ER) | payer OTHER ==
[2019-11-14] MEDS ORDERED: ACETAMINOPHEN 500 MG TABLET (FP) PO ONE (16:45)
--- NOTE | 2019-11-14 16:45 | PDOC ---
Rapid Medical Evaluation Time Seen by Provider: 11/14/19 16:44 Medical Evaluation: Allergies Allergy/AdvReac Type Severity Reaction Status Date / Time No Known Allergies Allergy Verified 02/14/19 10:32 11/14/19 16:44 HPI: COVID-19 CDC guideline data points: The patient is a 29-year-old F presents with COVID-19 with associated symptoms of fever, anorexia for 6 days. No comorbidities. ROS: NEGATIVE: difficulty breathing, shortness of breath, chest pain, lightheadedness, dizziness, nausea, vomiting and diarrhea. Other 12 point ROS reviewed and negative. Exam: General: NAD, Well-Appearing, Awake, Alert Oriented x3. Temp 102.8 orally. ENT: No rhinorrhea or nasal congestion. Neck: FROM, no midline tenderness. Lungs: Clear to auscultation bilaterally without wheezes, rhonchi or rales. Normal excursion. Patient is able to speak in full sentences. Heart: HR: Regular rhythm, S1-S2 present, no murmurs rubs or gallops. Abdomen: Non-distended. MSK/Extremities: No decrease ROM, No obvious deformities. No obvious cyanosis noted. Neuro: Normal Gait, Cranial Nerves II through XII Grossly Intact. Skin: No obvious rashes, bruising. Color Normal Appearing. Assessment/Plan: Patient has a history of this/these comorbidities: none, denies recent travel and known COVID exposure. Patient does not meet testing criteria at this time. ASSESSMENT: Denies recent travel and known Covid exposure. Treatment: Tylenol for fever Supportive measures Isolation advised Drive-thru testing info given ED return precautions reviewed 11/14/19 16:48 Discharge Disposition - Diagnosis Fever - Discharge Dispostion Decision to Admit order: No - Referrals - Patient Instructions Printed Discharge Instructions: [facility]-Coronavirus Instructions, [facility] COVID-19 Isolation Protocol Additional Instructions: You were seen for your cough and possible Coronavirus (COVID-19) Please call the [facility] testing center to make an appointment at or you can call [facility] at from 8:30 AM to 6 PM; or you can visit the [facility] website: [email or web address] for more information about testing at the [facility]. Take Tylenol 650 mg every 6 hours as needed for fever or pain. You may take Robitussin or other [id number] cough syrup. Follow the dosing instructions on the bottle. Warm tea, honey, and salt water gargles may help your symptoms. Please take precautions and self quarantine for 2 weeks and follow-up with your primary care doctor and the Department of Health. Return to the nearest emergency department for shortness of breath, difficulty breathing, chest pain, or if you have any changes in your symptoms. Print Language: CHINESE - Post Discharge Activity
[2019-11-14 16:54] VITALS: BP 140/82; PULSE 108; TEMP 102.8
== END 2019-11-14 17:05 | disposition home or self-care (01) ==
LOC: JER 16:37
DX: R50.9 Fever, unspecified (principal)
CPT/HCPCS: 99282-25